=== PATIENT | female | born 1995 | race Two or more races ===

== ENCOUNTER 2017-08-22 18:37 | Emergency (ER) | payer SELFPAY ==
--- NOTE | 2017-08-22 19:01 | ER Document Report ---
ED Medical Screen (RME) - General Chief Complaint: Abdominal Pain Stated Complaint: STOMACH PAIN Time Seen by Provider: 08/22/17 18:59 Notes: Patient says she is feeling dizzy and lightheaded for the past couple of days. Says she has been coughing and feeling "bloated" for the past 1-2 months. She says that she does not eat because of the bloated feeling. Has been nauseated but not actually vomiting. Does not have diarrhea. Last bowel movement was this morning. Patient denies having any gastrointestinal disorders. Never been told she has IBS. Does not have any fevers. Patient thinks she may have started her period today. She has a arm implant of a control device. She has had a D&C but no other abdominal surgeries. On no regular prescription medications. TRAVEL OUTSIDE OF THE [place] IN LAST 30 DAYS: No - Related Data Allergies/Adverse Reactions: amoxicillin [Amoxicillin] Allergy (Verified 08/22/17 18:46) Past Medical History - Social History Chew tobacco use (# tins/day): No Frequency of alcohol use: Rare Drug Abuse: None - Past Medical History Cardiac Medical History: Denies: Hx Coronary Artery Disease, Hx Heart Attack, Hx Hypertension Pulmonary Medical History: Denies: Hx Asthma, Hx Bronchitis, Hx COPD, Hx Pneumonia Neurological Medical History: Denies: Hx Cerebrovascular Accident, Hx Seizures Renal/ Medical History: Denies: Hx Peritoneal Dialysis Musculoskeltal Medical History: Denies Hx Arthritis Past Surgical History: Reports: Hx Gynecologic Surgery - d&c. Denies: Hx Pacemaker - Immunizations Hx Diphtheria, Pertussis, Tetanus Vaccination: Yes Physical Exam - Vital signs Vitals: Temp Pulse Resp BP Pulse Ox 98.4 F 98 16 130/72 H 97 08/22/17 18:43 08/22/17 18:43 08/22/17 18:43 08/22/17 18:43 08/22/17 18:43 Course - Vital Signs Vital signs: Temp Pulse Resp BP Pulse Ox 98.4 F 98 16 130/72 H 97 08/22/17 18:43 08/22/17 18:43 08/22/17 18:43 08/22/17 18:43 08/22/17 18:43
[2017-08-22 19:44] LABS: ABSOLUTE BASOPHILS # (AUTO) 0.1 10^3/uL (0.0-0.2); ABSOLUTE EOSINOPHILS # (AUTO) 0.1 10^3/uL (0.0-0.6); ABSOLUTE LYMPHOCYTES (AUTO) 2.8 10^3/uL (0.5-4.7); ABSOLUTE MONOCYTES (AUTO) 0.6 10^3/uL (0.1-1.4); ABSOLUTE NEUT (AUTO) 6.6 10^3/uL (1.7-8.2); BASOPHILS % (AUTO) 0.8 % (0-2); EOSINOPHILS % (AUTO) 1.2 % (0-6); HEMATOCRIT 41.7 % (36.0-47.0); HEMOGLOBIN 14.3 g/dL (12.0-15.5); HGB HCT DIFFERENCE 1.2; LYMPHOCYTES % (AUTO) 27.7 % (13-45); MEAN CORPUSCULAR HEMOGLOBIN 31.8 pg (27.0-33.4); MEAN CORPUSCULAR HGB CONC 34.2 g/dL (32.0-36.0); MEAN CORPUSCULAR VOLUME 93 fl (80-97); RED BLOOD COUNT 4.49 10^6/uL (3.72-5.28); RED CELL DISTRIBUTION WIDTH 13.1 % (11.5-14.0); SEGMENTED NEUTROPHILS % (AUTO) 64.3 % (42-78); WHITE BLOOD COUNT 10.2 10^3/uL (4.0-10.5)
[2017-08-22 19:48] LABS: APPEARANCE,URINE CLEAR; BILIRUBIN,URINE NEGATIVE (NEGATIVE); GLUCOSE, URINE NEGATIVE (NEGATIVE); KETONES,URINE NEGATIVE (NEGATIVE); LEUKOCYTE ESTERASE,URINE NEGATIVE (NEGATIVE); NITRITE,URINE NEGATIVE (NEGATIVE); PROTEIN,URINE NEGATIVE (NEGATIVE); URINE SPECIFIC GRAVITY 1.013; UROBILINOGEN,URINE NEGATIVE mg/dL (<2.0)
[2017-08-22 19:58] LABS: ALANINE AMINOTRANSFERASE 39 U/L (9-52); ALBUMIN 4.7 g/dL (3.5-5.0); ALKALINE PHOSPHATASE 109 U/L (38-126); ANION GAP 14 (5-19); ASPARTATE AMINO TRANSFERASE 27 U/L (14-36); BILIRUBIN,DIRECT 0.4 mg/dL (0.0-0.4); BILIRUBIN,TOTAL 0.5 mg/dL (0.2-1.3); BLOOD UREA NITROGEN 5 mg/dL (7-20); CALCIUM 9.7 mg/dL (8.4-10.2); CARBON DIOXIDE 27 mmol/L (22-30); CHLORIDE 101 mmol/L (98-107); CREATININE RESULT 0.57 mg/dL (0.52-1.25); GLUCOSE 101 mg/dL (75-110); LIPASE 30.2 U/L (23-300); POTASSIUM 3.7 mmol/L (3.6-5.0); SODIUM 142.4 mmol/L (137-145); TOTAL PROTEIN 7.8 g/dL (6.3-8.2)
--- NOTE | 2017-08-22 20:16 | ER Document Report ---
ED General - General Mode of Arrival: Ambulatory Information source: Patient TRAVEL OUTSIDE OF THE [place] IN LAST 30 DAYS: No <MATTHIEU MARROQUIN - Last Filed: 08/22/17 20:23> <JOHN NICE - Last Filed: 08/22/17 22:26> - General Chief Complaint: Abdominal Pain Stated Complaint: STOMACH PAIN Time Seen by Provider: 08/22/17 18:59 Notes: Patient is a 22 year old female presenting to the emergency department complaining of feeling lightheaded and dizzy for 2 days. Patient also states she has been coughing and feeling bloated for the last 2 months. Patient states that she has not been eating due to her feeling bloated. Patients associated symptoms include nausea. Patients last BM was this morning. Patient has previously had a D&C. 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 [employer] Family History: Reviewed & Not Pertinent Patient has suicidal ideation: No Patient has homicidal ideation: No Past Surgical History: Reports: Hx Gynecologic Surgery - d&c - Immunizations Hx Diphtheria, Pertussis, Tetanus Vaccination: Yes <MATTHIEU MARROQUIN - Last Filed: 08/22/17 20:23> Review of Systems - Review of Systems Constitutional: No symptoms reported EENT: No symptoms reported Cardiovascular: See HPI, Dizziness, Lightheaded Respiratory: See HPI, Cough Gastrointestinal: See HPI, Poor appetite, Other - Bloating Genitourinary: No symptoms reported Female Genitourinary: No symptoms reported Musculoskeletal: No symptoms reported Skin: No symptoms reported Hematologic/Lymphatic: No symptoms reported Neurological/Psychological: No symptoms reported -: Yes All other systems reviewed and negative <MATTHIEU MARROQUIN - Last Filed: 08/22/17 20:23> Physical Exam - General General appearance: Appears well, Alert In distress: None - HEENT Head: Normocephalic, Atraumatic Conjunctiva: Normal Pupils: PERRL Mucous membranes: Moist - Respiratory Respiratory status: No respiratory distress Chest status: Nontender Breath sounds: Rhonchi - worse on the right than left - Cardiovascular Rhythm: Regular Heart sounds: Normal auscultation Murmur: No Friction rub: No Gallop: None auscultated - Abdominal Inspection: Obese Distension: No distension Bowel sounds: Normal Tenderness: Nontender Organomegaly: No organomegaly - Back Back: Normal - Extremities General upper extremity: Normal inspection, Normal ROM General lower extremity: Normal inspection, Normal ROM - Neurological Neuro grossly intact: Yes Cognition: Normal Orientation: AAOx4 [place] Coma Scale Eye Opening: Spontaneous [place] Coma Scale Verbal: Oriented [place] Coma Scale Motor: Obeys Commands [place] Coma Scale Total: 15 Speech: Normal - Psychological Associated symptoms: Normal affect, Normal mood - Skin Skin Temperature: Warm Skin Moisture: Dry Skin Color: Normal <MATTHIEU MARROQUIN - Last Filed: 08/22/17 20:23> - Vital signs Vitals: Temp Pulse Resp BP Pulse Ox 98.4 F 98 16 130/72 H 97 08/22/17 18:43 08/22/17 18:43 08/22/17 18:43 08/22/17 18:43 08/22/17 18:43 Course - Laboratory Result Diagrams: 08/22/17 19:20 08/22/17 19:20 <MATTHIEU MARROQUIN - Last Filed: 08/22/17 20:23> - Laboratory Result Diagrams: 08/22/17 19:20 08/22/17 19:20 - Diagnostic Test Radiology reviewed: Image reviewed, Reports reviewed - Acute abdominal series is unremarkable other than a quite distended bladder. - EKG Interpretation by De EKG shows normal: Sinus rhythm, [place], Intervals, QRS Complexes, ST-T Waves Rate: Normal - 82 Rhythm: NSR <JOHN NICE - Last Filed: 08/22/17 22:26> - Re-evaluation Re-evalutation: 08/22/17 22:21 The patient states she urinated a large volume after the x-ray was done. A Amato catheter was placed to check for residual and there was 30 mL's of urine. This confirms that urinary retention is not the source of her bloated feeling. (JOHN NICE) - Vital Signs Vital signs: Temp Pulse Resp BP Pulse Ox 98.4 F 98 16 130/72 H 97 08/22/17 18:43 08/22/17 18:43 08/22/17 18:43 08/22/17 18:43 08/22/17 18:43 - Laboratory Laboratory results interpreted by me: 08/22/17 08/22/17 19:20 19:20 BUN 5 L Urine Blood MODERATE H Discharge <MATTHIEU MARROQUIN - Last Filed: 08/22/17 20:23> <JOHN NICE - Last Filed: 08/22/17 22:26> - Discharge Clinical Impression: Light-headed feeling, Bloating symptom Condition: Stable Disposition: HOME, SELF-CARE Additional Instructions: Your physical exam, lab work, and x-rays do not show an explanation for your symptoms that include the dizzy lightheaded sensation for the past 2 days or the bloated feeling for the past 2 months. No emergency medical condition was detected during your evaluation. You should get plenty of rest and sleep. Drink cool clear liquids until the nausea resolves. Try Benadryl or Dramamine for the dizzy symptoms and nauseousness, it may help some. Follow-up with a local medical doctor this week if not improving. RETURN TO THE EMERGENCY ROOM IF ANY NEW OR WORSENING SYMPTOMS. Scribe Attestation: 08/22/17 20:49 I personally performed the services described in the documentation, reviewed and edited the documentation which was dictated to the scribe in my presence, and it accurately records my words and actions. (JOHN NICE) Scribe Documentation - Scribe Written by Mary:: Mary Samuel, 08/22/2017 20:23 acting as scribe for :: [place] <MATTHIEU MARROQUIN - Last Filed: 08/22/17 20:23>
--- NOTE | 2017-08-22 20:52 | RADIOLOGY REPORT (SQ) ---
EXAM DESCRIPTION: ACUTE ABDOMEN SERIES COMPLETED DATE/TIME: 08/22/2017 8:36 pm REASON FOR STUDY: Congested cough, bloated abdomen COMPARISON: None. NUMBER OF VIEWS: Three views. TECHNIQUE: Frontal chest, supine abdomen and upright/decubitus abdomen radiographic images acquired. LIMITATIONS: None. FINDINGS: CHEST: Lungs clear of infiltrates. FREE AIR: None. No abnormal gas collections. BOWEL GAS PATTERN: Nonobstructive pattern. No dilated loops or air fluid levels. CALCIFICATIONS: No suspicious calcifications. HARDWARE: None in the abdomen. SOFT TISSUES: No gross mass or suggestion of organomegaly. BONES: No acute fracture. No worrisome bone lesions. OTHER: No other significant finding. IMPRESSION: NO RADIOGRAPHIC EVIDENCE FOR ACUTE ABDOMINAL DISEASE. TECHNICAL DOCUMENTATION: JOB ID: [id number] [employer]- All Rights Reserved
[2017-08-22 22:49] VITALS: BP 128/69
--- NOTE | 2017-08-23 06:00 | EKG REPORT ---
SEVERITY:- NORMAL ECG - SINUS RHYTHM : Confirmed by: Brianne Santillan MD 23-Aug-2017 06:00:09
== END 2017-08-22 22:34 | disposition home or self-care (01) ==
LOC: ER 18:37
DX: R14.0 Abdominal distension (gaseous) (principal); R42 Dizziness and giddiness; R10.9 Unspecified abdominal pain; R05 Cough; R11.0 Nausea; F17.210 Nicotine dependence, cigarettes, uncomplicated
CPT/HCPCS: 36415; 51702; 74022; 80053; 81001; 83690; 84703; 85025; 93005; 93010; 99284

== ENCOUNTER 2020-01-22 17:23 | Inpatient (IN) | payer MEDICAID ==
[2020-01-22] MEDS ORDERED: ACETAMINOPHEN 325 MG TABLET PO PRN (17:59)
[2020-01-22] MEDS ORDERED: MAG HYDROX/AL HYDROX/SIMETH SUSP 30 ML UDCUP PO PRN (17:59)
[2020-01-22] MEDS ORDERED: DINOPROSTONE 10 MG VAGINAL INSERT.SR PV ONE (17:59)
[2020-01-22] MEDS ORDERED: ZOLPIDEM TARTRATE 5 MG TABLET PO PRN (17:59)
[2020-01-22] MEDS ORDERED: RINGERS SOLUTION,LACTATED 1,000 ML IV PRN (17:59)
[2020-01-22] MEDS ORDERED: RINGERS SOLUTION,LACTATED 1,000 ML IV ONE (17:59)
[2020-01-22] MEDS ORDERED: DINOPROSTONE 10 MG VAGINAL INSERT.SR ONE (18:12)
[2020-01-22 18:33] LABS: URINE AMPHETAMINES SCREEN NEGATIVE; URINE BARBITURATES SCREEN NEGATIVE; URINE BENZODIAZEPINES SCREEN NEGATIVE; URINE COCAINE SCREEN NEGATIVE; URINE MARIJUANA (THC) SCREEN NEGATIVE; URINE METHADONE SCREEN NEGATIVE; URINE PHENCYCLIDINE SCREEN NEGATIVE
[2020-01-22 18:39] LABS: ABSOLUTE BASOPHILS # (AUTO) 0.1 10^3/uL (0.0-0.2); ABSOLUTE EOSINOPHILS # (AUTO) 0.1 10^3/uL (0.0-0.6); ABSOLUTE LYMPHOCYTES (AUTO) 2.7 10^3/uL (0.5-4.7); ABSOLUTE MONOCYTES (AUTO) 0.6 10^3/uL (0.1-1.4); ABSOLUTE NEUT (AUTO) 11.8 10^3/uL (1.7-8.2); EOSINOPHILS % (AUTO) 0.9 % (0-6); HEMATOCRIT 34.9 % (36.0-47.0); HEMOGLOBIN 12.1 g/dL (12.0-15.5); LYMPHOCYTES % (AUTO) 17.4 % (13-45); MEAN CORPUSCULAR HGB CONC 34.8 g/dL (32.0-36.0); MEAN CORPUSCULAR VOLUME 89 fl (80-97); MONOCYTES % (AUTO) 3.6 % (3-13); PLATELET COUNT 420 10^3/uL (150-450); RED BLOOD COUNT 3.92 10^6/uL (3.72-5.28); SEGMENTED NEUTROPHILS % (AUTO) 77.1 % (42-78); TOTAL CELLS COUNTED % (AUTO) 100 %; WHITE BLOOD COUNT 15.3 10^3/uL (4.0-10.5)
--- NOTE | 2020-01-22 21:42 | Admission Physical ---
Datetime Report Generated by CPN: 01/22/2020 21:42 CURRENT ADMISSION Chief Complaint: Scheduled Induction of Labor Indication for Induction: Post Dates Admit Impression : Term, Intrauterine ; No Active Labor; Intact Membranes; Induction of Labor Admit Plan: Admit to Unit; Initiate Labor Induction Protocol ALLERGIES Medication Allergies: Yes Medication Allergies: amoxicillin (08/22/2017) Latex: No Latex Allergies OBSTETRICAL HISTORY EDC: 01/15/2020 00:00 : 3 Para: 1 Term: 1 : 0 SAB: 1 IAB: 0 Ectopic: 0 Livin Cesareans: 0 VBACs: 0 Multiple Births: 0 Gestational Diabetes: No Rh Sensitization: No Incompetent Cervix: No NATHANAEL: No Infertility: No ART Treatment: No Uterine Anomaly: No IUGR: No Hx Previous C/S: No Macrosomia: No Hx Loss/Stillborn: No PIH: No Hx : No Placenta Previa/Abruption: No Depression/PP Depression: No PTL/PROM: No Post Hemorrhage: No Current Procedures: Ultrasound Obstetrical History Comments: .5 weeks-Baby girl G3-Current SEE RECORDS Alcohol: No Marijuana : No Cocaine: No Other Illicit Drugs: No Cigarettes: Former Smoker. 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 Porter Surgery: No Heart Disease: No Hosp/Surgery: Yes Autoimmune Disorder: No Anesthetic Complications: No Kidney Disease: Yes Abnormal Pap Smear: No Neuro/Epilepsy: No Psychiatric Disorders: No Other Medical Diseases: No Hepatitis/Liver Disease: No Significant Family History: No Varicosities/Phlebitis: No Trauma/Violence : No Thyroid Dysfunction: No Medical History Comments: frequent UTIs 2011 INFECTIOUS HISTORY Gonorrhea: No Genital Herpes: No Chlamydia: No Tuberculosis: No Syphilis: No Hepatitis: No HIV/AIDS Exposure: No Rash or Viral Illness: No HPV: No 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 Vital Signs: Reviewed VAGINAL EXAM Dilatation: 1 Effacement: 50 Station: -2 Contraction Comments: irreg MEMBRANES Membranes: Intact FETUS A EGA: 41.0 Monitoring: External US FHR- Baseline: 120 Variability: Moderate 6-25bpm Accelerations: 15X15 Decelerations: None FHR Category: Category I Presentation: Vertex Admit Comment: 24yo at 41+0ega here for IOL. /-2 and cervidil placed. Pelvis proven to 8#1oz and baby EFW 8#5oz on 01/17. + DSR then recalculated and Increased ONTD - MFM following. History of low lying placenta - resolved. 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 She has never had a cold sore and has never had a genital outbreak. HSV precautions reviewed - no lesion orally, no lesions on genital exam. No prodrome. GBS negative. Admit to labor and delivery and begin IOL. Anticipate PLANS FOR LABOR AND DELIVERY Labor and Delivery: None Pain Management: Epidural Feeding Preference: Breast Benefit of Breast Feed Discussed: Yes Circumcision: Yes INFORMED CONSENT Informed Consent Obtained: Vaginal Delivery; Induction of Labor; Risks, Benefits and Alternatives Discussed Signature: with User ID: [email or web address]
[2020-01-23] MEDS ORDERED: OXYTOCIN 10 UNIT/ML VIAL ONE (07:37)
[2020-01-23] MEDS ORDERED: MISOPROSTOL 0.2 MG TABLET ONE (07:37)
[2020-01-23] MEDS ORDERED: OXYTOCIN/NORMAL SALINE 20 UNIT/1,000 ML RTUINJ ONE (07:37)
[2020-01-23] MEDS ORDERED: LIDOCAINE 1% INJ-PF (10 MG/ML) 30 ML SDV ONE (07:37)
[2020-01-23] MEDS ORDERED: PROMETHAZINE HCL INJ 25 MG/1 ML VIAL ONE (13:50)
[2020-01-23] MEDS ORDERED: NALBUPHINE HCL INJ 10 MG/1 ML AMPULE ONE (13:50)
[2020-01-23] MEDS ORDERED: NALBUPHINE HCL INJ 10 MG/1 ML AMPULE INJ ONE (14:15)
[2020-01-23] MEDS ORDERED: EPHEDRINE SULFATE INJ 50 MG/1 ML AMPULE ONE (14:42)
[2020-01-23] MEDS ORDERED: BUPIVACAINE HCL 0.25 % INJ/PF (2.5 MG/1 ML) 30 ML VIAL ONE (14:43)
[2020-01-23] MEDS ORDERED: FENTANYL/BUPIVACAINE/NS/PF 300 MCG/150 ML RTUINJ EPI ONE (14:43)
[2020-01-23] MEDS ORDERED: ONDANSETRON HCL INJ/PF 4 MG/2 ML SDV IV ONE (15:59)
[2020-01-23] MEDS ORDERED: ONDANSETRON HCL INJ/PF 4 MG/2 ML SDV ONE (16:00)
[2020-01-23] MEDS ORDERED: DIPHENHYDRAMINE HCL 25 MG CAPSULE PO PRN (23:25)
[2020-01-23] MEDS ORDERED: OXYTOCIN/NORMAL SALINE 20 UNIT/1,000 ML RTUINJ IV PRN (23:25)
[2020-01-23] MEDS ORDERED: MAGNESIUM HYDROXIDE SUSP 30 ML UDCUP PO PRN (23:25)
[2020-01-23] MEDS ORDERED: DIPH/PERTUSS(ACELL)/TETANUS VAC/PF 0.5 ML SYR (>=10YO) IM PRN (23:25)
[2020-01-23] MEDS ORDERED: NA PHOS,M-B/NA PHOS,DI-BA (ADULT) 133 ML ENEMA PR PRN (23:25)
[2020-01-23] MEDS ORDERED: ACETAMINOPHEN 650 MG SUPP.RECT PR PRN (23:25)
[2020-01-23] MEDS ORDERED: PROMETHAZINE HCL 25 MG SUPP.RECT PR PRN (23:25)
[2020-01-23] MEDS ORDERED: ACETAMINOPHEN WITH CODEINE #3 TABLET PO PRN (23:25)
[2020-01-23] MEDS ORDERED: PSEUDOEPHEDRINE HCL 30 MG TABLET PO PRN (23:25)
[2020-01-23] MEDS ORDERED: ZOLPIDEM TARTRATE 5 MG TABLET PO PRN (23:25)
[2020-01-23] MEDS ORDERED: DIBUCAINE 1% OINTMENT 28 GM TP PRN (23:25)
[2020-01-23] MEDS ORDERED: BENZOCAINE/MENTHOL AEROSOL SPRAY 56 ML TOP PRN (23:25)
[2020-01-23] MEDS ORDERED: PROMETHAZINE HCL 25 MG TABLET PO PRN (23:25)
[2020-01-23] MEDS ORDERED: PROMETHAZINE HCL INJ 25 MG/1 ML VIAL IV PRN (23:25)
[2020-01-23] MEDS ORDERED: MEASLES,MUMPS&RUBELLA VACC/PF 0.5 ML VIAL SUBCUT PRN (23:25)
[2020-01-23] MEDS ORDERED: GLYCERIN/WITCH HAZEL LEAF 1 EACH MED..WIPE TP PRN (23:25)
[2020-01-23] MEDS ORDERED: FAMOTIDINE 20 MG TABLET PO ONE (23:45)
--- NOTE | 2020-01-24 00:22 | Delivery Summary ---
Del Sum A-C Datetime Report Generated by CPN: 01/24/2020 00:22 DELIVERY PERSONNEL DELIVERY PERSONNEL: [id number] Delivery Doctor:: Silvia Salmon MD Labor and Delivery Nurse:: Talita Wilde RNpowder core tester Nurse:: Cristal Engle RN Lump Inspector:: CHELLY Garner Nursery Nurse:: Diane Wilson RN MATERNAL INFORMATION Delivery Anesthesia: Epidural Medications After Delivery: Pitocin Bolus-Please Comment; Pitocin Drip 20 Units/1000ml NSS Estimated Blood Loss (ml): 150 Maternal Complications: None LABOR SUMMARY EDC: 01/15/2020 00:00 No. Babies in Womb: 1 Attempted: No Labor Anesthesia: Epidural LABOR INFORMATION Reason for Induction: Post Dates Onset of Labor: 01/23/2020 11:55 Complete Dilatation: 01/23/2020 20:53 Cervical Ripening Agents: Cervidil Oxytocin: Induction Group B Beta Strep: negative Antibiotics # of Doses: 0 Antibiotics Time of Last Dose: 0 Name of Antibiotic Given: 0 Steroids Given: None Reason Steroids Not Administered: Not Applicable MEMBRANES Membranes Rupture Method: Artificial Rupture of Membranes: 01/23/2020 11:55 Length of Rupture (hr): 11.00 Amniotic Fluid Color: Clear Amniotic Fluid Amount: Small Amniotic Fluid Odor: None STAGES OF LABOR Stage 1 hr: 8 Stage 1 min: 58 Stage 2 hr: 2 Stage 2 min: 2 Stage 3 hr: 0 Stage 3 min: 3 Total Time in Labor hr: 11 Total Time in Labor min: 3 VAGINAL DELIVERY Episiotomy: None Laceration #1: None Laceration Extension #1: N/A Laceration Repair: No Sponge Count Correct: N/A Sharps Count Correct: N/A CSECTION DELIVERY Primary Indication: N/A Secondary Indication: N/A CSection Incidence: N/A Labor: N/A Elective: N/A BABY A INFORMATION Delivery Date/Time: 01/23/2020 22:55 Method of Delivery: Vaginal Nurse Controlled Delivery: No Born in Route : No : N/A Forceps: N/A Vacuum Extraction: N/A Shoulder Dystocia : No PRESENTATION/POSITION BABY A Presentation: Cephalic Cephalic Presentation: Vertex Vertex Position: Left Occipital Anterior Breech Presentation: N/A PLACENTA INFORMATION BABY A Placenta Delivery Time : 01/23/2020 22:58 Placenta Method of Delivery: Spontaneous Placenta Status: Delivered SCORES BABY A Heart Rate 1 min: >100 bpm Resp Effort 1 min: Good Cry Reflex Irritability 1 min: Cough or Sneeze or Pulls Away Muscle Tone 1 min: Active Motion Color 1 min: Body [place], Extremities Blue Resuscitation Effort 1 min: Tactile Stimulation SCORE 1 MIN: 9 Heart Rate 5 min: >100 bpm Resp Effort 5 min: Good Cry Reflex Irritability 5 min: Cough or Sneeze or Pulls Away Muscle Tone 5 min: Active Motion Color 5 min: Body [place], Extremities Blue Resuscitation Effort 5 min: Tactile Stimulation SCORE 5 MIN: 9 INFORMATION BABY A Gestational Age at Delivery: 41.1 Gestational Status: Late Term- 41- 41.6 Weeks Outcome : Liveborn Infant Condition : Stable Infant Sex: Male IDENTIFICATION BABY A Infant Verification Date/Time: 01/23/2020 23:58 ID Band Number: [id number] Mother's Name Verified: Yes RN Verifying Infant: E Jason RN/D Bellavance RN WEIGHT/LENGTH BABY A Birthweight (gm): 4069 Weight (lb): 9 Weight (oz): 0 Length (in): 22.00 Infant Length (cm): 55.88 CORD INFORMATION BABY A No. Cord Vessels: 3 Nuchal Cord : N/A Cord Blood Taken: Yes-For Eval (Mom's Blood Type - or O+) Suction: Mouth; Nose ASSESSMENT BABY A Complications: None Physical Findings at Delivery: Within Normal Limits Infant Respirations: Appears Normal Skin to Skin: Yes Skin to Skin Time (min): 60 Lead Data Architect/ALS Called : No Infant Care By: D Bellavance RN Transferred To: Remains with Mother BABY B INFORMATION : N/A SIGNATURES Signature: with User ID: [email or web address]
[2020-01-24] MEDS: IBUPROFEN 800 MG TABLET PO SCH ×3 (05:09→21:48)
[2020-01-24 08:00] LABS: HEMATOCRIT 32.6 % (36.0-47.0); HEMOGLOBIN 11.1 g/dL (12.0-15.5); MEAN CORPUSCULAR HEMOGLOBIN 30.6 pg (27.0-33.4); MEAN CORPUSCULAR HGB CONC 34.2 g/dL (32.0-36.0); MEAN CORPUSCULAR VOLUME 89 fl (80-97); PLATELET COUNT 373 10^3/uL (150-450); RED BLOOD COUNT 3.65 10^6/uL (3.72-5.28); RED CELL DISTRIBUTION WIDTH 15.8 % (11.5-14.0); WHITE BLOOD COUNT 24.9 10^3/uL (4.0-10.5)
[2020-01-24] MEDS: SENNOSIDES/DOCUSATE 8.6-50 MG 1 EACH TABLET PO SCH (09:31)
[2020-01-24] MEDS: DOCUSATE SODIUM 100 MG CAPSULE PO SCH ×2 (09:31→18:14)
[2020-01-24] MEDS: FERROUS SULFATE 325 MG TABLET PO SCH ×2 (09:31→18:14)
[2020-01-24] MEDS: PRENATAL VITAMIN W DHA CAPSULE PO SCH (09:31)
[2020-01-24] MEDS: FAMOTIDINE 20 MG TABLET PO SCH ×2 (09:33→21:52)
--- NOTE | 2020-01-24 11:14 | PDOC PROGRESS REPORT ---
Subjective-OB Progress Note for:: 01/24/20 Subjective: 24yo G3 now P2 s/p ppd 1. Pt ambulating, voiding and without difficulty. Reports pain well controlled with medication, no concerns today Physical Exam (OB) Vital Signs: Temp Pulse Resp BP Pulse Ox 97.6 F 93 16 123/69 100 01/24/20 08:31 01/24/20 08:31 01/24/20 08:31 01/24/20 08:31 01/24/20 08:31 Intake & Output 01/23/20 01/24/20 01/25/20 06:59 06:59 06:59 Weight 89.3 kg - General General Appearance: Appears well In distress: None - PIH/Pre-Eclampsia DTR's: 1 + Clonus: Negative Headache: Absent Epigastric Pain: No Visual Changes: No - Episiotomy/Laceration Site Condition: N/A - Lochia Lochia Amount: Scant < 10 ml Lochia Color: Rubra/Red - Abdomen Description: Soft, Round Hernia Present: No Fundal Description: Firm, Midline Fundal Height: u/u - u/2 - Respiratory Respiratory Status: No respiratory distress - Extremities Upper extremity: Normal inspection Lower extremities: Normal inspection - Neurological Cognition: Normal Orientation: AAOx4 - Psychological Associated symptoms: Normal affect, Normal mood Objective-Diagnostic Laboratory: 01/24/20 07:29 01/24/20 07:29 WBC 24.9 H RBC 3.65 L Hgb 11.1 L Hct 32.6 L MCV 89 MCH 30.6 MCHC 34.2 RDW 15.8 H Plt Count 373 Assessment and Plan(PN) - Assessment and Plan (1) Vaginal delivery Is this a current diagnosis for this admission?: Yes Plan: Routine pp care (2) Post-dates Qualifiers: Post-term type: 40-42 weeks gestation Qualified Code(s): O48.0 - Post-term Is this a current diagnosis for this admission?: Yes Plan: delivered (3) Encounter for induction of labor Is this a current diagnosis for this admission?: Yes Plan: delivered - Time Spent with Patient Time with patient: Less than 15 minutes Medications reviewed and adjusted accordingly: Yes - Disposition Anticipated Discharge: Home Within: within 24 hours
[2020-01-24] MEDS: ACETAMINOPHEN WITH CODEINE #3 TABLET PO PRN (21:51)
[2020-01-25] MEDS: IBUPROFEN 800 MG TABLET PO SCH (05:48)
[2020-01-25 06:49] LABS: HEMATOCRIT 30.4 % (36.0-47.0); HEMOGLOBIN 10.7 g/dL (12.0-15.5); MEAN CORPUSCULAR HEMOGLOBIN 31.6 pg (27.0-33.4); MEAN CORPUSCULAR HGB CONC 35.2 g/dL (32.0-36.0); MEAN CORPUSCULAR VOLUME 90 fl (80-97); PLATELET COUNT 375 10^3/uL (150-450); RED BLOOD COUNT 3.39 10^6/uL (3.72-5.28); RED CELL DISTRIBUTION WIDTH 15.7 % (11.5-14.0); WHITE BLOOD COUNT 16.5 10^3/uL (4.0-10.5)
--- NOTE | 2020-01-25 09:52 | PDOC DISCHARGE SUMMARY ---
Impression - Admit/DC Date/PCP Admission Date/Primary Care Provider: 01/22/20 17:23 CONSTANTINO RAMSEY MD Discharge Date: 01/25/20 - PP Day #2, doing well, , O+. Rubella Equivocal - Discharge Diagnosis (1) Encounter for induction of labor Is this a current diagnosis for this admission?: Yes (2) Post-dates Is this a current diagnosis for this admission?: Yes (3) Vaginal delivery Is this a current diagnosis for this admission?: Yes - Additional Information Resuscitation Status: Full Code Discharge Diet: As Tolerated, Regular Discharge Activity: Activity As Tolerated Referrals: CONSTANTINO RAMSEY MD [Primary Care Provider] - Prescriptions: Ibuprofen [Motrin 800 mg Tablet] 800 mg PO Q8 #60 tablet Home Medications: Pv W-O Vit A/Iron,Carbonyl/FA [Prenatabs Obn Tablet] 1 each PO DAILY 05/20/12 Ibuprofen [Motrin 800 mg Tablet] 800 mg PO Q8 #60 tablet 01/25/20 HPI Reason(s) for Admission: Induction of Labor Intrapartum Procedure(s): Spontaneous Vaginal Delivery Results Laboratory Results: WBC 16.5 10^3/uL (4.0-10.5) H 01/25/20 06:37 RBC 3.39 10^6/uL (3.72-5.28) L 01/25/20 06:37 Hgb 10.7 g/dL (12.0-15.5) L 01/25/20 06:37 Hct 30.4 % (36.0-47.0) L 01/25/20 06:37 MCV 90 fl (80-97) 01/25/20 06:37 MCH 31.6 pg (27.0-33.4) 01/25/20 06:37 MCHC 35.2 g/dL (32.0-36.0) 01/25/20 06:37 RDW 15.7 % (11.5-14.0) H 01/25/20 06:37 Plt Count 375 10^3/uL (150-450) 01/25/20 06:37 Lymph % (Auto) 17.4 % (13-45) 01/22/20 18:23 [place] % (Auto) 3.6 % (3-13) 01/22/20 18:23 Eos % (Auto) 0.9 % (0-6) 01/22/20 18:23 Baso % (Auto) 1.0 % (0-2) 01/22/20 18:23 Absolute Neuts (auto) 11.8 10^3/uL (1.7-8.2) H 01/22/20 18:23 Absolute Lymphs (auto) 2.7 10^3/uL (0.5-4.7) 01/22/20 18: Absolute Monos (auto) 0.6 10^3/uL (0.1-1.4) 01/22/20 18: Absolute Eos (auto) 0.1 10^3/uL (0.0-0.6) 01/22/20 18: Absolute Basos (auto) 0.1 10^3/uL (0.0-0.2) 01/22/20 18:23 Seg Neutrophils % 77.1 % (42-78) 01/22/20 18:23 Urine Opiates Screen NEGATIVE 01/22/20 17:35 Urine Methadone Screen NEGATIVE 01/22/20 17:35 Ur Barbiturates Screen NEGATIVE 01/22/20 17:35 Ur Phencyclidine Scrn NEGATIVE 01/22/20 17:35 Ur Amphetamines Screen NEGATIVE 01/22/20 17:35 U Benzodiazepines Scrn NEGATIVE 01/22/20 17:35 Urine Cocaine Screen NEGATIVE 01/22/20 17:35 U Marijuana (THC) Screen NEGATIVE 01/22/20 17:35 RPR NONREACTIVE (NONREACTIVE) 01/22/20 18:23 Blood Type O POSITIVE 01/22/20 18:23 Antibody Screen NEGATIVE 01/22/20 18:23 Plan Plan of Treatment: d/c home, f/up with [facility] in 4 wks for PP check. Pt needs MMR booster prior to d/c home today Time Spent: Less than 30 Minutes
[2020-01-25] MEDS: PRENATAL VITAMIN W DHA CAPSULE PO SCH (09:55)
[2020-01-25] MEDS: FAMOTIDINE 20 MG TABLET PO SCH (09:55)
[2020-01-25] MEDS: FERROUS SULFATE 325 MG TABLET PO SCH (09:55)
[2020-01-25] MEDS: DOCUSATE SODIUM 100 MG CAPSULE PO SCH (09:55)
[2020-01-25] MEDS: SENNOSIDES/DOCUSATE 8.6-50 MG 1 EACH TABLET PO SCH (09:55)
[2020-01-25] MEDS: ACETAMINOPHEN WITH CODEINE #3 TABLET PO PRN (09:59)
[2020-01-25 11:34] VITALS: BP 123/69
== END 2020-01-25 12:26 | disposition home or self-care (01) | DRG 807 ==
LOC: LR 17:23 → 2N 01-24 01:17
PROVIDERS: ADMIT Student in an Organized Health Care Education/Training Program; ATTEND Student in an Organized Health Care Education/Training Program
PROC: 10E0XZZ Delivery of Products of Conception, External Approach (ICD-10-PCS; principal; 2020-01-23)
PROC: 3E033VJ Introduction of Other Hormone into Peripheral Vein, Percutaneous Approach (ICD-10-PCS; 2020-01-23)
PROC: 10907ZC Drainage of Amniotic Fluid, Therapeutic from Products of Conception, Via Natural or Artificial Opening (ICD-10-PCS; 2020-01-23)
PROC: 3E0P7VZ Introduction of Hormone into Female Reproductive, Via Natural or Artificial Opening (ICD-10-PCS; 2020-01-23)
DX: O48.0 Post-term pregnancy (principal); Z37.0 Single live birth; Z3A.41 41 weeks gestation of pregnancy; Z87.891 Personal history of nicotine dependence; Z88.0 Allergy status to penicillin
CPT/HCPCS: 1967; 36415; 80307; 85025; 85027; 86592; 86850; 86900; 86901; 90715; 94760; J2300; J2405; J2550; J2590; J3010; J3490

== ENCOUNTER 2020-01-29 15:42 | Emergency (ER) | payer MEDICAID ==
--- NOTE | 2020-01-29 16:29 | ER Document Report ---
ED Medical Screen (RME) - General Chief Complaint: Feet Swelling Stated Complaint: SWOLLEN FOOT Time Seen by Provider: 01/29/20 16:25 Primary Care Provider: CONSTANTINO RAMSEY MD [Primary Care Provider] - Follow up as needed Mode of Arrival: Ambulatory Information source: Patient Notes: 24-year-old female presented to ED for right foot and leg swelling 5 days . She is alert oriented respirations regular nonlabored speaking in full sentences. She does have significantly more swelling to the right foot and leg than the left. I have greeted and performed a rapid initial assessment of this patient. A comprehensive ED assessment and evaluation of the patient, analysis of test results and completion of medical decision making process will be conducted by an additional ED providers. TRAVEL OUTSIDE OF THE [place] IN LAST 30 DAYS: No - Related Data Allergies/Adverse Reactions: amoxicillin [Amoxicillin] Allergy (Verified 01/29/20 16:19) Past Medical History - Social History Chew tobacco use (# tins/day): No Frequency of alcohol use: None Drug Abuse: None - Past Medical History Cardiac Medical History: Denies: Hx Coronary Artery Disease, Hx Heart Attack, Hx Hypertension Pulmonary Medical History: Denies: Hx Asthma, Hx Bronchitis, Hx COPD, Hx Pneumonia Neurological Medical History: Denies: Hx Cerebrovascular Accident, Hx Seizures Renal/ Medical History: Denies: Hx Peritoneal Dialysis Musculoskeltal Medical History: Denies Hx Arthritis Past Surgical History: Reports: Hx Gynecologic Surgery - d&c. Denies: Hx Pacemaker - Immunizations Hx Diphtheria, Pertussis, Tetanus Vaccination: Yes Physical Exam - Vital signs Vitals: Temp Pulse Resp BP Pulse Ox 98.3 F 91 20 143/86 H 98 01/29/20 15:46 01/29/20 15:46 01/29/20 15:46 01/29/20 15:46 01/29/20 15:46 Course - Vital Signs Vital signs: Temp Pulse Resp BP Pulse Ox 98.3 F 91 20 143/86 H 98 01/29/20 16:19 01/29/20 15:46 01/29/20 15:46 01/29/20 15:46 01/29/20 15:46 Doctor's Discharge - Discharge Referrals: CONSTANTINO RAMSEY MD [Primary Care Provider] - Follow up as needed
[2020-01-29 17:00] LABS: PARTIAL THROMBOPLASTIN TIME 31.3 SEC (23.5-35.8); PROTHROMBIN TIME 13.2 SEC (11.4-15.4)
[2020-01-29 17:17] LABS: APPEARANCE,URINE SLIGHTLY-CLOUDY; BILIRUBIN,URINE NEGATIVE (NEGATIVE); COLOR,URINE AMBER; GLUCOSE, URINE 50 mg/dL (NEGATIVE); KETONES,URINE NEGATIVE (NEGATIVE); PROTEIN,URINE >=500 mg/dL (NEGATIVE); UROBILINOGEN,URINE NEGATIVE mg/dL (<2.0)
--- NOTE | 2020-01-29 17:52 | ER Document Report ---
ED Extremity Problem, Lower - General Chief Complaint: Feet Swelling Stated Complaint: SWOLLEN FOOT Time Seen by Provider: 01/29/20 16:25 Primary Care Provider: CONSTANTINO RAMSEY MD [Primary Care Provider] - Follow up as needed Mode of Arrival: Ambulatory Notes: Patient is a 24-year-old female who presents emergency department with a chief complaint of right leg swelling. Patient is 5 days . Patient states that she called her [employer] and was referred to the emergency department for venous Doppler studies. Patient denies any abdominal pain, dysuria, or any other symptoms at this time. TRAVEL OUTSIDE OF THE [place] IN LAST 30 DAYS: No - Related Data Allergies/Adverse Reactions: amoxicillin [Amoxicillin] Allergy (Verified 01/29/20 16:19) Past Medical History - General Information source: Patient - Social History Smoking Status: Never Smoker Chew tobacco use (# tins/day): No Frequency of alcohol use: None Drug Abuse: None Family History: Reviewed & Not Pertinent Patient has homicidal ideation: No - Past Medical History Cardiac Medical History: Denies: Hx Coronary Artery Disease, Hx Heart Attack, Hx Hypertension Pulmonary Medical History: Denies: Hx Asthma, Hx Bronchitis, Hx COPD, Hx Pneumonia Neurological Medical History: Denies: Hx Cerebrovascular Accident, Hx Seizures Renal/ Medical History: Denies: Hx Peritoneal Dialysis Musculoskeletal Medical History: Denies Hx Arthritis Past Surgical History: Reports: Hx Gynecologic Surgery - d&c. Denies: Hx Pacemaker - Immunizations Hx Diphtheria, Pertussis, Tetanus Vaccination: Yes Review of Systems - Review of Systems Notes: REVIEW OF SYSTEMS: CONSTITUTIONAL : Denies recent illness. Denies recent unintentional weight loss. Denies fever, chills, or sweats. EENT: Denies eye, ear, throat, or mouth pain, discharge, or symptoms. Denies nasal or sinus congestion. CARDIOVASCULAR: Denies chest pain. RESPIRATORY: Denies shortness of breath, cough, congestion, difficulty breathing, or wheezing. GASTROINTESTINAL: Denies nausea, vomiting, and diarrhea. Denies abdominal pain. Denies constipation. GENITOURINARY: Denies difficulty urinating, burning, blood in urine, urgency or frequency. MUSCULOSKELETAL: Denies neck and back pain. See HPI. SKIN: Denies rash, itchiness, or lesions HEMATOLOGIC : Denies easy bruising or bleeding. LYMPHATIC: Denies swollen, painful, enlarged glands. NEUROLOGICAL: Denies no numbness or tingling denies weakness. Denies headache. Denies altered mental status. Denies alteration in speech. PSYCHIATRIC: Denies stress, anxiety, alteration in sleep patterns, or depression. All other systems reviewed and negative. Physical Exam - Vital signs Vitals: Temp Pulse Resp BP Pulse Ox 98.3 F 91 20 143/86 H 98 01/29/20 15:46 01/29/20 15:46 01/29/20 15:46 01/29/20 15:46 01/29/20 15:46 - Notes Notes: PHYSICAL EXAMINATION: GENERAL: Appears well, healthy, well-nourished, no acute distress. HEAD: Normocephalic, atraumatic. EYES: PERRL, conjunctiva normal, all extraocular movements intact, sclera nonicteric ENT: Moist mucous membranes. NECK: Supple, no noticeable swelling, redness, rash. Normal range of motion. LUNGS: Equal breath sounds bilaterally and clear to auscultation. No wheezes rales or rhonchi. CARDIOVASCULAR: S1-S2, regular rate, regular rhythm. Radial pulses 2+, normal. ABDOMEN: Normoactive bowel sounds. Soft, nontender, no guarding, no rebound tenderness, and no masses palpated. EXTREMITIES: Normal strength and range of motion. No cyanosis. 2+ nonpitting edema to right lower extremity. 3+ pitting edema to her right foot. NEUROLOGICAL: Moves all extremities upon command. Strength 5/5 in all extremities. PSYCH: Normal mood, normal affect. SKIN: Warm, dry. No rash, lesions, ulcerations noted. Normal skin turgor. - Extremities Left calf in cm: 34 Right calf in cm: 38 Course - Re-evaluation Re-evalutation: 01/29/20 17:50 Patient's urinalysis ordered in triage shows a moderate amount of leukocytes and large amount of blood, there is also 54 epithelial cells. Patient denies any dysuria. Unofficial results are negative for a DVT. Patient will follow-up with her [employer] in regards to this visit. Follow-up precautions were given. Verbal discharge instructions were given to the patient. They verbalized understanding. They are stable for discharge. - Vital Signs Vital signs: Temp Pulse Resp BP Pulse Ox 98.3 F 91 20 143/86 H 98 01/29/20 16:19 01/29/20 15:46 01/29/20 15:46 01/29/20 15:46 01/29/20 15:46 - Laboratory Laboratory results interpreted by me: 01/29/20 16:33 Urine Protein >=500 H Urine Glucose (UA) 50 H Urine Blood LARGE H Leukocyte Esterase Rfl MODERATE H Discharge - Discharge Clinical Impression: Swelling of extremity Condition: Stable Disposition: HOME, SELF-CARE Additional Instructions: You are seen today in the emergency department for swelling in your right leg. A blood clot was not visualized on ultrasound in your legs. Wear compression stockings. Follow-up with your [employer] in regards to this visit. Referrals: CONSTANTINO RAMSEY MD [Primary Care Provider] - Follow up as needed
[2020-01-29 18:14] VITALS: BP 136/76
--- NOTE | 2020-01-29 18:52 | RADIOLOGY REPORT (SQ) ---
EXAM DESCRIPTION: VENOUS UNILATERAL LOWER IMAGES COMPLETED DATE/TIME: 01/29/2020 6:42 pm REASON FOR STUDY: Right venous Doppler swelling pain right postpartu COMPARISON: None. TECHNIQUE: Dynamic and static avila scale and color images acquired of the right leg venous system. S elected spectral images acquired with additional compression and augmentation maneuvers. The contrala teral common femoral vein and saphenofemoral junction were also imaged. Images stored on PACS. LIMITATIONS: None. FINDINGS: COMMON FEMORAL: Normal phasicity, compression and augmentation. No visualized echogenic ma terial on avila scale. No defects on color images. FEMORAL: Normal compression and augmentation. No visualized echogenic material on avila scale. No defe cts on color images. POPLITEAL: Normal compression, augmentation. No visualized echogenic material on avila scale. No defec ts on color images. CALF VESSELS: Normal compression, augmentation. No visualized echogenic material on avila scale. No de fects on color images. GSV and SSV: Normal compression, augmentation. No visualized echogenic material on avila scale. No def ects on color images. ANY DEEP VENOUS INSUFFICIENCY: No. ANY EVIDENCE OF POPLITEAL CYST: No. OTHER: No other significant finding. CONTRALATERAL COMMON FEMORAL VEIN AND SAPHENOFEMORAL JUNCTION: Normal phasicity, compression and augmentation. No visualized echogenic material on avila scale. No de fects on color images. IMPRESSION: NO EVIDENCE DVT OR SVT IN THE RIGHT LEG. COMMENT: Preliminary report was called by the technologist to the referring clinician's office at th e time of the exam. TECHNICAL DOCUMENTATION: JOB ID: [id number] [employer]- All Rights Reserved Reading location - IP/workstation name: [email or web address]
== END 2020-01-29 18:17 | disposition home or self-care (01) ==
LOC: ER 15:42
DX: O90.89 Other complications of the puerperium, not elsewhere classified (principal); M79.89 Other specified soft tissue disorders
CPT/HCPCS: 36415; 81001; 85610; 85730; 87086; 93971; 99284